=== PATIENT | male | born 2000 | race Caucasian/White ===

== ENCOUNTER 2020-12-19 10:34 | Outpatient (CLI) | payer OTHER ==
--- NOTE | 2020-12-19 11:08 | RAD ---
EXAM: 4 views of the left knee HISTORY: Knee pain COMPARISON: None FINDINGS: No knee effusion is seen. There is no evidence of acute fracture or dislocation. No signifi cant degenerative changes are seen. No soft tissue swelling is present. IMPRESSION: No evidence of acute osseous abnormality.
--- NOTE | 2020-12-19 11:08 | RAD ---
EXAM: 3 views of the left ankle HISTORY: Ankle pain COMPARISON: None FINDINGS: 3 views of the left ankle shows no evidence of acute fracture or dislocation. No soft tissu e swelling is seen. No degenerative changes are present. IMPRESSION: No evidence of acute osseous abnormality.
== END 2020-12-19 10:35 | disposition home or self-care (01) ==
LOC: MADRAD 10:34
DX: T14.8XXA Other injury of unspecified body region, initial encounter (principal); M19.90 Unspecified osteoarthritis, unspecified site